=== PATIENT | female | born 1965 | race African-American/Black ===

== ENCOUNTER 2018-12-07 11:55 | Emergency (ER) | payer OTHER ==
[~2018-12-07] VITALS: Ht 175.3 cm; Wt 90.7 kg
[~2018-12-07 11:55] MED LIST: HYDROCODONE-AP1 EAC6 PO; IBUPROFEN 600600 M1 PO; MEDROL DOSPAK21 TAB PO
[2018-12-07 12:22] LABS: BASOPHILS 0.7 % (0.0-2.0); EOSINOPHILS 1.9 % (0.0-3.0); HEMATOCRIT 37.6 % (37.0-47.0); HEMOGLOBIN 12.7 gm/dL (12.0-15.0); LYMPHOCYTES 40.7 % (24.0-44.0); MCH 29.8 pg (26.0-34.0); MCHC 33.8 g/dL (28.0-37.0); MCV 88.3 fL (80.0-100.0); MONOCYTES 8.2 % (1.0-8.0); PLATELET COUNT 212 thou/uL (150-400); POLYS 48.5 % (36.0-66.0); RBC 4.26 mil/uL (4.20-5.00); RDW 14.5 % (10.5-14.5); WBC 4.2 thou/uL (4.0-11.0)
[2018-12-07 12:32] LABS: ANION GAP 8 mmol/L (7-16); BUN 13 mg/dL (7-18); CALCIUM 10.1 mg/dL (8.5-10.1); CHLORIDE 106 mmol/L (98-107); CO2 28 mmol/L (21-32); CREATININE 0.9 mg/dL (0.6-1.0); GLUCOSE 85 mg/dL (74-106); POTASSIUM 3.6 mmol/L (3.5-5.1); SODIUM 142 mmol/L (136-145)
[2018-12-07 12:42] LABS: ALBUMIN 3.9 g/dL (3.4-5.0); LIPASE 155 U/L (73-393); SGOT 19 U/L (15-37); SGPT 30 U/L (30-65); TOTAL BILIRUBIN 0.5 mg/dL (<0.1-1.0); TOTAL PROTEIN 8.9 g/dL (6.4-8.2); TROPONIN-I <0.06 ng/mL (<0.06)
[2018-12-07] MEDS ORDERED: NEURONTIN 300300 M1 PO (13:37)
[2018-12-07] MEDS ORDERED: ZYRTEC10 M4 PO (13:37)
[2018-12-07] MEDS ORDERED: IBUPROFEN 600600 M1 PO (13:37)
[2018-12-07] MEDS ORDERED: MOBIC7.5 MG PO (15:06)
[2018-12-07 15:17] VITALS: BP 138/87
--- NOTE | 2018-12-08 09:26 | EKG ---
[place] [address] [facility] [place] [address] ELECTROCARDIOGRAM REPORT Name: BRANDAN PEGUERO 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1965 Requested By: Do Jackson Order Number: [id number] MD: Devon Villavicencio Measurements Intervals [place] Rate: 83 P: 38 [place]: 181 QRS: -3 QRSD: 78 T: 17 QT: 361 QTc: 425 Interpretive Statements Sinus rhythm Borderline criteria for Left ventricular hypertrophy No previous ECG available for comparison Electronically Signed On 12-08-2018 9:25:58 CDT by Devon Villavicencio [email or web address] ��������������������������������������������� <ELECTRONICALLY SIGNED> ���������������������������������������� By: Devon Villavicencio MD, [facility] ��������������������������������������������� 12/08/18 0925 1204 1204 Devon Villavicencio MD, FACC /EPI
--- NOTE | 2018-12-08 09:28 | EKG ---
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1965 Requested By: Do Jackson Order Number: [id number] MD: Devon Villavicencio Measurements Intervals [place] Rate: 59 P: 29 [place]: 204 QRS: -6 QRSD: 83 T: 15 QT: 417 QTc: 414 Interpretive Statements Sinus rhythm Borderline prolonged [place] interval Left ventricular hypertrophy No previous ECG available for comparison Electronically Signed On 12-08-2018 9:28:10 CDT by Devon Villavicencio [email or web address] ��������������������������������������������� <ELECTRONICALLY SIGNED> ���������������������������������������� By: Devon Villavicencio MD, [facility] ��������������������������������������������� 12/08/18 0928 1438 1438 Devon Villavicencio MD, FACC /EPI
== END 2018-12-07 15:33 | disposition home or self-care (01) ==
LOC: ER 11:55
PROVIDERS: Nurse Practitioner Family
DX: R07.89 Other chest pain (principal)